=== PATIENT | male | born 1975 | race Caucasian/White ===

== ENCOUNTER 2024-07-12 19:37 | Emergency (ER) | payer OTHER ==
--- OUTSIDE RECORDS SUMMARY | 2024-07-12 19:40 | XMS REPORT | Continuity of Care Document ---
Author Name Unknown Address [address] [facility] [address] [place] [address] [facility] Address [address] 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 Problem [facility] Elevated levels of transamina se & lactic acid dehydrogen ase Nonspecifi c elevation of levels of transamina se and lactic acid dehydrogen ase [LDH] Problem [facility] Hematuria Hematuria, unspecifie d Problem [facility] 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 Ordering Clinician Indication Dosage Frequency Signature (SIG) Comments Components Source Vitamin E Vitamin E No Vitamin E Imuran 50 mg Imuran 50 mg No Imuran 50 mg Vital Signs Vital Name Observation Time Observation Value Comments S ource height 2023-11-21 09:15:00 71 [in_i] [facility] 2023-11-21 09:15:00 85.09 kg [facility] bmi 2023-11-21 09:15:00 26.16 kg/m2 [place] [facility] temperature 2023-11-21 09:15:00 97.6 [degF] [place] [facility] respiratory rate 2023-11-21 09:15:00 16 /min [facility] heart rate 2023-11-21 09:15:00 75 /min [facility] blood pressure systolic 2023-11-21 09:15:00 122 mm[Hg] [facility] blood pressure diastolic 2023-11-21 09:15:00 87 mm[Hg] [facility] Encounters Start Date/Time End Date/Time Encounter Type Admission Type Attending [facility] Facility Care Department Encounter ID Source 2023-11-21 08:23:03 Outpatient CLS CLS [id number] [facility] 2023-11-21 00:00:00 2023-11-21 00:00:00 Office Visit- Est Pt.- Level 5 CLS CLS [id number] [facility] 2021-09-19 03:04:00 2021-09-19 03:04:00 Outpatient SHALA_LORNE HERRERA [facility] [id number] [facility] Program
--- NOTE | 2024-07-12 19:58 | EDPHYS ---
Physician Documentation [facility] Name: Corby Yang Age: 49 yrs Sex: Male : 1975 Arrival Date: 07/12/2024 Time: 19:37 Bed 18 Private MD: ED Physician Deng Toth HPI: 07/12 19:58 This 49 yrs old Male presents to ER via Ambulatory with complaints of Redness of Eye, kb Foreign Body In Eye. 19:58 Pt is a 49 year old male who presents for redness, swelling and drainage to right eye kb that started last night. States his vision is normal and he doesn't have any pain to the eye. States he got vinegar in his eye yesterday and has flushed it multiple times since then.. Historical: - Allergies: 19:57 No Known Allergies; ha1 - PMHx: 19:57 Autoimmune disease; ha1 - Immunization history:: Adult Immunizations not up to date. - Infectious Disease History:: Denies. - Social history:: Smoking status: Patient denies any tobacco usage or history of. ROS: 19:58 Constitutional: As per HPI kb Exam: 19:58 Constitutional: This is a well developed, well nourished patient who is awake, alert, kb and in no acute distress. Head/Face: Normocephalic, atraumatic. ENT: Moist Mucous membranes Cardiovascular: Regular rate Respiratory: Respirations even and unlabored. No increased work of breathing. Talking in full sentences Skin: Warm, dry with normal turgor. Normal color. MS/ Extremity: Pulses equal, no cyanosis. Neurovascular intact. Full, normal range of motion. Neuro: Awake and alert, GCS 15, oriented to person, place, time, and situation. 19:58 Eyes: Periorbital structures: appear normal, Pupils: equal, round, and reactive to light and accomodation, Extraocular movements: intact throughout, Conjunctiva: chemosis, that is moderate, in right eye, exudate, in the right eye, injected, in the right eye, Vital Signs: 19:43 BP 153 / 96; Pulse 97; Resp 18 S; Temp 99.4(O); Pulse Ox 100% on R/A; Weight 85.73 kg; ha1 Height 5 ft. 11 in. ; 19:43 Body Mass Index 26.36 (85.73 kg, 180.34 cm) ha1 MDM: 19:46 Medical Screening Exam initiated kb 20:00 Differential diagnosis: Corneal abrasion of Corneal ulcer of Foreign body in Acute kb iritis of chemosis. Data reviewed: vital signs, nurses notes. Counseling: I had a detailed discussion with the patient and/or guardian regarding the historical points, exam findings, and any diagnostic results supporting the discharge/admit diagnosis, the need for outpatient follow up, an opthalmologist, to return to the emergency department if symptoms worsen or persist or if there are any questions or concerns that arise at home. Administered Medications: No medications were administered Disposition Summary: 07/12/24 19:57 Discharge Ordered Notes: Location: Home Condition: Stable kb Diagnosis - Unspecified acute conjunctivitis, right eye kb Followup: kb - With: Emergency Department - When: As needed - Reason: Worsening of condition Followup: kb - With: Private Physician - When: 2 - 3 days - Reason: Recheck today's complaints, Continuance of care, Re-evaluation by your physician Discharge Instructions: - Discharge Summary Sheet kb - Chemical Conjunctivitis, Adult, Opfl-[id number] kb Forms: - Medication Reconciliation Form kb - Antibiotic Education kb - Prescription Opioid Use kb - Patient Portal Instructions kb - Leadership Thank You Letter kb Prescriptions: - Vigamox 0.5 % Ophthalmic Drops - instill 1 drop OPHTHALMIC route every 8 hours for 7 days; 5 milliliter; kb Refills: 0, Product Selection Permitted Signatures: Kenia Chan FNP-C FNP-Ckb Ayala, Heidy, RN RN ha1
--- NOTE | 2024-07-12 19:58 | ER ---
Nurse's Notes [facility] Name: Corby Yang Age: 49 yrs Sex: Male : 1975 Arrival Date: 07/12/2024 Time: 19:37 Bed 18 Private MD: Diagnosis: Unspecified acute conjunctivitis, right eye Presentation: 07/12 19:43 Chief complaint: Patient states: I WAS CLEANING MY WATER HEATER WITH VINEGAR YESTERDAY ha1 AND SPLASH MY EYES WITH IT. REDNESS, SWELLING, AND BILATERAL EYE PAIN. Chief complaint: Patient states: I WAS CLEANING MY WATER HEATER WITH VINEGAR YESTERDAY AND SPLASH MY EYES WITH IT. REDNESS, SWELLING, AND BILATERAL EYE PAIN. 19:43 Coronavirus screen: Client denies travel out of the [place] in the last 14 days. Ebola ha1 Screen: No symptoms or risks identified at this time. Initial Sepsis Screen: Does the patient meet any 2 criteria? No. Patient's initial sepsis screen is negative. Does the patient have a suspected source of infection? No. Patient's initial sepsis screen is negative. Risk Assessment: Do you want to hurt yourself or someone else? Patient reports no desire to harm self or others. Onset of symptoms was July 12, 2024. 19:43 Method Of Arrival: Ambulatory ha1 19:43 Acuity: ILANA 3 ha1 Triage Assessment: 19:57 General: Appears uncomfortable, Behavior is cooperative. Pain: Complains of pain in ha1 right eye and left eye Pain currently is 7 out of 10 on a pain scale. Quality of pain is described as burning. EENT: Eyes are tearing on outer aspect of conjuctiva of right eye, inner aspect of conjuctiva of right eye, outer aspect of conjuctiva of left eye and inner aspect of conjunctiva of left eye REDNESS AND SWELLING . Neuro: Level of Consciousness is awake, alert, obeys commands, Oriented to person, place, time, situation. Respiratory: Airway is patent Respiratory effort is even, unlabored, Respiratory pattern is regular, symmetrical. Historical: - Allergies: 19:57 No Known Allergies; ha1 - PMHx: 19:57 Autoimmune disease; ha1 - Immunization history:: Adult Immunizations not up to date. - Infectious Disease History:: Denies. - Social history:: Smoking status: Patient denies any tobacco usage or history of. Screenin:58 [facility] ED Fall Risk Assessment (Adult) History of falling in the last 3 months, ha1 including since admission No falls in past 3 months (0 pts) Confusion or Disorientation No (0 pts) Intoxicated or Sedated No (0 pts) Impaired Gait No (0 pts) Mobility Assist Device Used No (0 pt) Altered Elimination No (0 pt) Score/Fall Risk Level 0 - 2 = Low Risk Oriented to surroundings, Maintained a safe environment, Educated pt \T\ family on fall prevention, incl call for assistance when getting out of bed, Hourly rounding (assess needs \T\ fall precautionary measures) done. Abuse screen: Denies threats or abuse. Denies injuries from another. Nutritional screening: No deficits noted. Tuberculosis screening: No symptoms or risk factors identified. Assessment: 20:02 Reassessment: SEE TRIAGE ASSESSMENT. ap3 20:05 Reassessment: Patient and/or family updated on plan of care and expected duration. Pain ap3 level reassessed. Patient is alert, oriented x 3, equal unlabored respirations, skin warm/dry/pink. Vital Signs: 19:43 BP 153 / 96; Pulse 97; Resp 18 S; Temp 99.4(O); Pulse Ox 100% on R/A; Weight 85.73 kg; ha1 Height 5 ft. 11 in. ; 19:43 Body Mass Index 26.36 (85.73 kg, 180.34 cm) ha1 ED Course: 19:43 Patient arrived in ED. gm2 19:43 Patient has correct armband on for positive identification. Bed in low position. Call ha1 light in reach. Side rails up X 1. Adult w/ patient. 19:43 Arm band placed on right wrist. ap3 19:46 Kenia Chan FNP-C is PHCP. kb 19:46 Deng Toth MD is Attending Physician. kb 19:57 Triage completed. ha1 20:00 Amaya Reyes, TOREY is Primary Nurse. me1 20:02 No provider procedures requiring assistance completed. Patient did not have IV access ap3 during this emergency room visit. 20:03 Provided Education on: MEDICATION ADMINISTRATION . ap3 Administered Medications: No medications were administered Medication: 20:03 VIS not applicable for this client. ap3 Outcome: 19:57 Discharge ordered by . ansley 20:03 Discharged to home ambulatory, with family, ap3 20:03 Condition: stable 20:03 Discharge instructions given to patient, family, Instructed on discharge instructions, follow up and referral plans. medication usage, Demonstrated understanding of instructions, follow-up care, medications, Prescriptions given X 1, 20:05 Patient left the ED. ap3 Signatures: Kenia Chan, LOLA LEIGH-Kelsie Reyes RN RN ap3 Linsey Reece RN RN ha1 Amaya Reyes RN RN oh1 Silvia Vance 2
[2024-07-13 03:32] VITALS: BP 153/96; TEMP 99.4; O2SAT 100
== END 2024-07-12 20:05 | disposition home or self-care (01) ==
LOC: ER 19:37
DX: H10.31 Unspecified acute conjunctivitis, right eye (principal)
CPT/HCPCS: 99283